=== PATIENT | male | born 1990 | race Caucasian/White ===

== ENCOUNTER 2016-07-14 02:29 | Emergency (ER) | payer BC ==
[2016-07-14 02:35] VITALS: BP 134/87
--- NOTE | 2016-07-14 06:23 | ED ---
Theo Stern Rebecca, scribed for Lillian Wrenuel on 07/14/16 at 0334 . Substance Abuse/Use - HPI Summary HPI Summary: Pt is a 25 y/o M BIBA who comes to ED p/w EtOH intoxication. Pt is responsive to questions. Is unsure of the amount of EtOH ingested in binge bout. Sx aggravated and alleviated by nothing. Pt denies any pain including abd pain and back pain. - History Of Current Complaint Chief Complaint: EDSubstanceAbuse Stated Complaint: ALCOHOL INTOXICATION Time Seen by Provider: 07/14/16 02:54 Hx Obtained From: Patient Ingestion History: Type/Name Of Drug - EtOH, Amount Ingested - Unknown Overdose Characteristics: Oral Timing Of Abuse: Binge Use Severity Initially: Mild Severity Currently: Mild Aggravating Factor(s): Nothing Alleviating Factor(s): Nothing Associated Signs And Symptoms: Negative PMH/Surg Hx/FS Hx/Imm Hx Endocrine/Hematology History: Denies: Hx Diabetes Cardiovascular History: Denies: Hx Hypertension Psychiatric History: Reports: Hx Anxiety Infectious Disease History: No Infectious Disease History: Denies: Traveled Outside the [place] in Last 30 Days - Family History Known Family History: Negative: Hypertension - Social History Alcohol Use: Weekly Alcohol Amount: 2 -3 x per week, "I drink too much" each time Substance Use Type: Reports: None Smoking Status (MU): Never Smoked Tobacco Review of Systems Negative: Abdominal Pain Negative: Arthralgia Positive: Other - EtOH intoxication All Other Systems Reviewed And Are Negative: Yes Physical Exam Triage Information Reviewed: Yes Vital Signs On Initial Exam: Initial Vitals Temp Pulse Resp BP Pulse Ox 97.4 F 120 20 134/87 93 07/14/16 02:32 07/14/16 02:32 07/14/16 02:32 07/14/16 02:32 07/14/16 02:32 Vital Signs Reviewed: Yes Appearance: Positive: No Pain Distress Skin: Positive: Warm, Skin Color Reflects Adequate Perfusion, Dry Eyes: Positive: EOMI, MELLO Respiratory/Lung Sounds: Positive: Clear to Auscultation, Breath Sounds Present Cardiovascular: Positive: RRR, Pulses are Symmetrical in both Upper and Lower Extremities Abdomen Description: Positive: Nontender, Soft Bowel Sounds: Positive: Present Musculoskeletal: Positive: Normal, Strength/ROM Intact Neurological: Positive: Normal, Sensory/Motor Intact Psychiatric: Positive: Affect/Mood Appropriate - Gildardo Coma Scale Coma Scale Total: 15 Diagnostics - Vital Signs Vital Signs Temp Pulse Resp BP Pulse Ox 07/14/16 02:32 97.4 F 120 20 134/87 93 - Laboratory Lab Statement: Any lab studies that have been ordered have been reviewed, and results considered in the medical decision making process. Course/Dx - Diagnoses Provider Diagnoses: Alcohol intoxication Discharge - Discharge Plan Condition: Stable Disposition: HOME Prescriptions: Ibuprofen TAB* [Motrin TAB* 600 MG] 600 mg PO Q8H PRN #20 tab PRN Reason: Pain Ondansetron ODT TAB* [Zofran 4 MG Odt TAB*] 4 mg PO Q8H PRN #20 tab.odt PRN Reason: Nausea Patient Education Materials: Alcohol Intoxication (ED) The documentation as recorded by the Theo wood Rebecca accurately reflects the service I personally performed and the decisions made by Holger mallory Emmanuel.
== END 2016-07-14 08:47 | disposition home or self-care (01) ==
LOC: ED 02:29
DX: F10.129 Alcohol abuse with intoxication, unspecified (principal)
CPT/HCPCS: 99282

== ENCOUNTER 2018-06-03 11:49 | Emergency (ER) | payer BC ==
[2018-06-03 12:48] VITALS: BP 144/91
--- NOTE | 2018-06-03 12:50 | UC ---
FLU HPI - HPI Summary HPI Summary: 27 yo male presents with diarrhea, vomiting, nausea since yesterday. He vomiting all day yesterday and had diarrhea. Is feeling a little better today, still with loose stools, but only vomited once. Has not had anything to eat last night or today. He has been drinking water well today. Has some generalized abdominal cramping. Denies fever, chills, SOB, chest pain, blood in stool or vomit. - History of Current Complaint Chief Complaint: UCRespiratory Stated Complaint: FLU LIKE SYMPTOMS Time Seen by Provider: 06/03/18 12:49 Hx Obtained From: Patient Onset/Duration: Sudden Onset Severity Currently: Moderate Severity Initially: Moderate Pain Intensity: 7 Pain Scale Used: 0-10 Numeric - Allergy/Home Medications Allergies/Adverse Reactions: Allergies Allergy/AdvReac Type Severity Reaction Status Date / Time Penicillins Allergy Unknown Verified 06/03/18 12:48 Reaction Details Home Medications: Home Medications Acetaminophen [Extra Strength Non-Aspirin] 500 mg PO 06/03/18 [History] PMH/Surg Hx/FS Hx/Imm Hx - Additional Past Medical History Additional PMH: None - Surgical History Surgical History: None - Family History Known Family History: Negative: Hypertension - Social History Occupation: Employed Full-time Lives: With Family Alcohol Use: Weekly Alcohol Amount: 2 -3 x per week, "I drink too much" each time Substance Use Type: Marijuana Substance Use Comment - Amount & Last Used: once a month Smoking Status (MU): Current Some Day Smoker Type: Cigarettes Review of Systems All Other Systems Reviewed And Are Negative: Yes Constitutional: Positive: Negative Skin: Positive: Negative Respiratory: Positive: Negative Cardiovascular: Positive: Negative Gastrointestinal: Positive: Abdominal Pain, Vomiting, Diarrhea, Nausea Genitourinary: Positive: Negative Neurovascular: Positive: Negative Neurological: Positive: Negative Psychological: Positive: Negative Physical Exam - Summary Physical Exam Summary: GENERAL: NAD. WDWN. No pain distress. SKIN: No rashes, sores, lesions, or open wounds. NECK: Supple. Nontender. No lymphadenopathy. CHEST: CTAB. No r/r/w. No accessory muscle use. Breathing comfortably and in no distress. CV: RRR. Without m/r/g. Pulses intact. Cap refill <2seconds ABDOMEN: Soft. NTTP. No distention or guarding. No CVA tenderness. Bowel sounds present NEURO: Alert. PSYCH: Age appropriate behavior. Triage Information Reviewed: Yes Vital Signs: Initial Vital Signs Temp 97.9 F 06/03/18 12:44 Pulse 70 06/03/18 12:44 Resp 18 06/03/18 12:44 BP 144/91 06/03/18 12:44 Pulse Ox 100 06/03/18 12:44 Laboratory Tests 06/03/18 12:57 Influenza A (Rapid) Negative Influenza B (Rapid) Negative Vital Signs Reviewed: Yes Flu Course/Dx - Course Course Of Treatment: Suspect viral gastroenteritis. Pt is tolerating po fluids today, is afebrile, and well appearing. Will rx for zofran and advise him to advance his diet as a BRAT diet as tolerated. F/u if symptoms do not improve. - Differential Dx/Diagnosis Provider Diagnosis: Viral gastroenteritis Discharge - Sign-Out/Discharge Documenting (check all that apply): Patient Departure All imaging exams completed and their final reports reviewed: No Studies - Discharge Plan Condition: Stable Disposition: HOME Prescriptions: Ondansetron ODT TAB* [Zofran 4 MG Odt TAB*] 4 mg PO Q8H PRN #12 tab.odt PRN Reason: Nausea Patient Education Materials: Gastroenteritis (ED) Referrals: Rosario Hines MD [Primary Care Provider] - Additional Instructions: If you develop a fever, shortness of breath, chest pain, new or worsening symptoms - please call your PCP or go to the ED. 1) Please advance your diet as tolerated starting with a BRAT diet (Bananas, Rice, applesauce, toast) - Billing Disposition and Condition Condition: STABLE Disposition: Home
[2018-06-03 13:08] LABS: Influenza A Molecular NEGATIVE (Negative); Influenza B Molecular NEGATIVE (Negative)
== END 2018-06-03 13:10 | disposition home or self-care (01) ==
LOC: UCEAST 11:49
DX: A08.4 Viral intestinal infection, unspecified (principal); F17.210 Nicotine dependence, cigarettes, uncomplicated; Z88.0 Allergy status to penicillin
CPT/HCPCS: 99212; G0463